=== PATIENT | male | born 1970 | race Hispanic/Latino ===

== ENCOUNTER 2018-09-20 06:20 | Observation (INO) | payer OTHER ==
[2018-09-20 07:00] LABS: BASO # 0.1 K/uL (0.0-0.2); BASO % 1.1 % (0.0-2.0); EOS # 0.2 K/uL (0.0-0.7); EOS % 1.9 % (0.0-4.0); HEMOGLOBIN 15.1 g/dL (12.0-18.0); LYMPH # 2.9 K/uL (1.0-4.3); LYMPH % 22.7 % (20.0-40.0); MEAN CELL VOLUME 83.9 fL (80.0-94.0); MEAN CORPUSCULAR HGB CONC 34.6 g/dL (33.0-37.0); MEAN PLATELET VOLUME 8.5 fL (7.2-11.7); MONO % 7.4 % (0.0-10.0); NEUT # 8.6 K/uL (1.8-7.0); NEUT % 66.9 % (50.0-75.0); NRBC % 0.1 % (0.0-2.0); RBC 5.21 Mil/uL (4.40-5.90); RED CELL DISTRIBUTION WIDTH 13.8 % (11.5-14.5); WHITE BLOOD COUNT 12.9 K/uL (4.8-10.8)
[2018-09-20 07:05] LABS: INR 1.1
--- NOTE | 2018-09-20 07:07 | C.PDOC ---
History Of Present Illness 48 yr old male w/ hx of HTN, DM2 p/w abdominal pain. Abdominal pain has been going on intermittently for weeks. Sharp stabbing pain, RUQ and LLQ, has a hx of gallstones, notes pain is similar, without radiation. No constipation, diarrhea, dark or bloody stool, nausea or vomiting. No Headache, trauma, dysuria, tenesmus or back pain. No rashes or new medications. Pt notes he was sent in by surgery for further consultation. No other complaints. Time Seen by Provider: 09/20/18 07:01 Chief Complaint (Nursing): Abdominal Pain History Per: Patient Past Medical History Vital Signs: Last Vital Signs Temp 98.1 F 09/20/18 06:32 Pulse 83 09/20/18 06:32 Resp 18 09/20/18 06:32 BP 180/115 H 09/20/18 06:32 Pulse Ox 96 09/20/18 06:32 - Medical History PMH: HTN Family History: States: No Known Family Hx - Social History Hx Alcohol Use: Yes Hx Substance Use: No - Immunization History Hx Tetanus Toxoid Vaccination: No Hx Influenza Vaccination: Yes Hx Pneumococcal Vaccination: No Review Of Systems Constitutional: Negative for: Fever Eyes: Negative for: Pain ENT: Negative for: Ear Pain Cardiovascular: Negative for: Chest Pain Respiratory: Negative for: Cough Gastrointestinal: Positive for: Abdominal Pain. Negative for: Nausea, Vomiting, Constipation Genitourinary: Negative for: Dysuria, Frequency Musculoskeletal: Negative for: Neck Pain, Shoulder Pain, Back Pain Skin: Negative for: Rash Neurological: Negative for: Weakness, Numbness, Change in Speech, Confusion, Headache Psych: Negative for: Anxiety Physical Exam - Physical Exam Appears: Well, Non-toxic, No Acute Distress Skin: Normal Color, Warm, Dry Head: Atraumatic, Normacephalic Eye(s): bilateral: Normal Inspection, PERRL, EOMI Ear(s): Bilateral: Normal Nose: Normal Oral Mucosa: Moist, Dry Tongue: Normal Appearing Lips: Normal Appearing Throat: Normal Neck: Normal, Normal ROM, Supple Chest: Symmetrical, No Deformity Cardiovascular: Rhythm Regular Respiratory: Normal Breath Sounds Gastrointestinal/Abdominal: Normal Exam, No Tenderness Back: Normal Inspection, No CVA Tenderness Extremity: Normal ROM Extremity: Bilateral: Atraumatic Pulses: Left Dorsalis Pedis: Normal, Right Dorsalis Pedis: Normal Neurological/Psych: Oriented x3, Normal Speech Gait: Steady ED Course And Treatment - Laboratory Results Result Diagrams: 09/20/18 06:54 09/20/18 06:54 O2 Sat by Pulse Oximetry: 96 Medical Decision Making Medical Decision Makin yr old male w/ hx of HTN, DM2 p/w RUQ abdominal pain. Sent in by surgery for eval for chronic RUQ pain. Likely to OR. [id number] seen by human resources vice president: to OR w/ Dr. Malloy. Pt in NAD with VSS. Abdomen stable. PT has been NPO for upcoming surgical procedure: choley. No fever, chills or night sweats. No N/V. No constipation or diarrhea. Appreciate consult w/ Dr. Malloy: to admit to his service. admission order placed. EK, NSR, No stemi Disposition - Disposition Disposition Time: 07:31 Condition: GOOD - Clinical Impression Clinical Impression: Abdominal pain
[2018-09-20 07:21] LABS: ALB/GLOB RATIO 1.2 (1.0-2.1); ALBUMIN 4.4 g/dL (3.5-5.0); ALT/SGPT 64 U/L (21-72); AST/SGOT 39 U/L (17-59); BLOOD UREA NITROGEN 12 mg/dL (9-20); CALCIUM 9.2 mg/dl (8.6-10.4); GFR NON-AFRICAN AMERICAN > 60; LIPASE 123 U/L (23-300)
[2018-09-20] MEDS ORDERED: ceFAZolin IV 1 gm in Dextrose 0 GM/0 ML BAG IVPB ONE (07:28)
[2018-09-20] MEDS ORDERED: Iohexol 240 (50 ml) ONE ×2 (07:29→09:25)
--- NOTE | 2018-09-20 08:05 | CP.PCM.HP ---
History of Present Illness - History of Present Illness History of Present Illness: Pt is a 48M with PMHx significant for HTN, GERD & DM who presents to for abdominal pain. Pt has symptomatic cholelithiasis and states he has abdominal pain major after fatty meals. Denies other complaints at this time. Denies nausea/vomiting, fevers/chills, chest pain or SOB. PMHx: as listed PSHx: denies SocialHx: former smoker, denies EtOH/drugs NKDA Present on Admission - Present on Admission Any Indicators Present on Admission: No Review of Systems - Review of Systems All systems: reviewed and no additional remarkable complaints except (as per HPI) Past Patient History - Infectious Disease Hx of Infectious Diseases: None - Past Social History Smoking Status: Former Smoker - CARDIAC Hx Hypertension: Yes - ENDOCRINE/METABOLIC Hx Diabetes Mellitus Type 2: Yes - GASTROINTESTINAL Hx Gastroesophageal Reflux: Yes - PSYCHIATRIC Hx Substance Use: No - SURGICAL HISTORY Hx Surgeries: No - ANESTHESIA Hx Anesthesia: No Meds Allergies/Adverse Reactions: Allergies Allergy/AdvReac Type Severity Reaction Status Date / Time No Known Allergies Allergy Unverified 09/20/18 06:29 Physical Exam - Constitutional Appears: Well, No Acute Distress - Head Exam Head Exam: ATRAUMATIC, NORMOCEPHALIC - ENT Exam ENT Exam: Mucous Membranes Moist - Respiratory Exam Respiratory Exam: NORMAL BREATHING PATTERN - Cardiovascular Exam Cardiovascular Exam: RRR - GI/Abdominal Exam GI & Abdominal Exam: Soft. absent: Distended, Tenderness - Neurological Exam Neurological exam: Alert, Oriented x3 - Skin Skin Exam: Dry, Intact, Warm Results - Vital Signs Recent Vital Signs: Last Vital Signs Temp 98.1 F 09/20/18 06:32 Pulse 83 09/20/18 06:32 Resp 18 09/20/18 06:32 BP 137/86 09/20/18 07:35 Pulse Ox 96 09/20/18 08:02 - Labs Result Diagrams: 09/20/18 06:54 09/20/18 06:54 Labs: Laboratory Results - last 24 hr 09/20/18 09/20/18 09/20/18 06:31 06:54 06:54 WBC 12.9 H RBC 5.21 Hgb 15.1 Hct 43.7 MCV 83.9 MCH 29.0 MCHC 34.6 RDW 13.8 Plt Count 213 MPV 8.5 Neut % (Auto) 66.9 Lymph % (Auto) 22.7 [place] % (Auto) 7.4 Eos % (Auto) 1.9 Baso % (Auto) 1.1 Neut # (Auto) 8.6 H Lymph # (Auto) 2.9 [place] # (Auto) 1.0 H Eos # (Auto) 0.2 Baso # (Auto) 0.1 PT 12.0 INR 1.1 APTT 34 Sodium Potassium Chloride Carbon Dioxide Anion Gap BUN Creatinine Est GFR ( Amer) Est GFR (Non-Af Amer) POC Glucose (mg/dL) 162 H Random Glucose Calcium Total Bilirubin AST ALT Alkaline Phosphatase Total Protein Albumin Globulin Albumin/Globulin Ratio Lipase Blood Type 09/20/18 09/20/18 06:54 07:18 WBC RBC Hgb Hct MCV MCH MCHC RDW Plt Count MPV Neut % (Auto) Lymph % (Auto) [place] % (Auto) Eos % (Auto) Baso % (Auto) Neut # (Auto) Lymph # (Auto) [place] # (Auto) Eos # (Auto) Baso # (Auto) PT INR APTT Sodium 138 Potassium 4.5 Chloride 103 Carbon Dioxide 24 Anion Gap 15 BUN 12 Creatinine 0.7 L Est GFR ( Amer) > 60 Est GFR (Non-Af Amer) > 60 POC Glucose (mg/dL) Random Glucose 178 H Calcium 9.2 Total Bilirubin 1.1 AST 39 ALT 64 Alkaline Phosphatase 84 Total Protein 7.9 Albumin 4.4 Globulin 3.6 Albumin/Globulin Ratio 1.2 Lipase 123 Blood Type B POSITIVE Assessment & Plan - Assessment and Plan (Free Text) Assessment: 48M with symptomatic cholelithiasis Plan: - OR for lap javon - keep NPO - d/w Dr. Manuel Lamar
[2018-09-20] MEDS: Sodium Chloride 0.9% 1,000 ML IV SCH ×3 (08:48→23:58)
[2018-09-20] MEDS ORDERED: ceFAZolin IV 1 gm in Dextrose 2 GM/100 ML BAG IVPB ONE (09:24)
[2018-09-20] MEDS ORDERED: Lidocaine Hydrochloride 0 ML INJ ONE (09:25)
[2018-09-20] MEDS ORDERED: Midazolam 2 MG/2 ML VIAL ONE (10:08)
[2018-09-20] MEDS ORDERED: Propofol 10 mg/ml Inj (20 ML) ONE (10:08)
[2018-09-20] MEDS ORDERED: Oxycodone/Acetaminophen 5/325 mg Tab PO PRN (12:30)
--- NOTE | 2018-09-20 12:37 | PCM.SURG1 ---
Surgeon's Initial Post Op Note - Surgeon's Notes Surgeon: Dr. Jackson Broaching Machine Repairer: Dr. Vu PGY3 Type of Anesthesia: General Endo Pre-Operative Diagnosis: Acute Cholecystitis Operative Findings: See operative dictation Post-Operative Diagnosis: Acute Cholecystitis Operation Performed: Laparoscopic Cholecystectomy With Intraoperative Cholangiogram Specimen/Specimens Removed: Gallbladder Estimated Blood Loss: EBL {In ML}: 15 Blood Products Given: N/A Drains Used: No Drains Post-Op Condition: Good Date of Surgery/Procedure: 09/20/18 Time of Surgery/Procedure: 12:36
[2018-09-20] MEDS: HYDROmorphone 0.5 mg/0.5 ml ISec IVP PRN ×3 (12:40→13:45)
[2018-09-20] MEDS ORDERED: Glucagon Recombinant 1 mg Inj IM PRN (13:20)
[2018-09-20] MEDS ORDERED: Dextrose 50% SYRINGE Inj (50 ml) IV PRN (13:20)
--- NOTE | 2018-09-20 13:53 | RAD ---
Date of service: 09/20/2018 PROCEDURE: Intraoperative Fluoroscopy. HISTORY: CHOLECYSTITIS FINDINGS: Fluoroscopic assistance was provided. Fluoroscopy time = 20.5 sec. Radiation dose = 9.97 mGy. Please refer to the operative report from ZACHERY Wang.
[2018-09-20] MEDS ORDERED: Sodium Chloride 0.9% 1,000 ML IV ONE (14:00)
[2018-09-20] MEDS: Ciprofloxacin 400mg/200ml D5W 400 MG/200 ML BAG IVPB SCH (16:10)
[2018-09-20] MEDS ORDERED: (Novolin R) Insulin Human Regular 100 units/ml vial SC SCH (18:00)
[2018-09-20] MEDS: (Novolin R) Insulin Human Regular 100 units/ml vial SC SCH (21:55)
[2018-09-20 22:53] VITALS: RESP 20
[2018-09-20 23:50] VITALS: O2SAT 95
--- NOTE | 2018-09-20 23:59 | OP ---
PROCEDURE DATE: 09/20/2018 PREOPERATIVE DIAGNOSIS: Acute cholecystitis. POSTOPERATIVE DIAGNOSIS: Acute cholecystitis. PROCEDURE CARRIED OUT: Laparoscopic cholecystectomy with C-arm cholangiogram. SURGEON: Beni Jackson Jr., MD OCCUPATIONAL THERAPY AIDES TEACHER: Eric Vu DO ANESTHESIOLOGIST: Tayla Winchester CRNA INDICATIONS FOR PROCEDURE: The patient is a 48-year-old man with known history of gallstones, pain today, advised to come to the emergency room. OPERATIVE FINDINGS: 1. Cholangiogram carried out through the cystic duct showed free flow into the duodenum. Visualization of the hepatic radicles, no evidence of any stones or strictures. 2. The gallbladder was acutely inflamed. There were adhesions to it. No other abnormality detected on examination of the liver or the other vessels. DESCRIPTION OF PROCEDURE: The patient was given general anesthesia and intravenous antibiotics. Venodyne boots were applied. A Rich trocar was inserted by cut-down technique in the umbilicus. Two additional 5 mm trocars were placed. The cystic duct, cystic artery, and a view of safety obtained. After obtaining this, we clipped the cystic duct and carried out cholangiogram as mentioned above. We then clipped the cystic duct and cystic artery. After this had been done, we removed the gallbladder from the liver bed and there was minimal bleeding. We then removed the gallbladder intact to the bag. We then closed the wound. We had closed the umbilicus. The others were closed. The skin incisions were closed. Blood loss was definitely less than 25 mL. Operation carried out, laparoscopic cholecystectomy with the cholangiogram. Beni Jackson Jr., MD cc:
[2018-09-21] MEDS: Ciprofloxacin 400mg/200ml D5W 400 MG/200 ML BAG IVPB SCH (01:44)
[2018-09-21] MEDS: (Novolin R) Insulin Human Regular 100 units/ml vial SC SCH ×2 (07:51→13:27)
[2018-09-21 08:15] LABS: BASO # 0.1 K/uL (0.0-0.2); BASO % 0.6 % (0.0-2.0); EOS # 0.1 K/uL (0.0-0.7); EOS % 0.5 % (0.0-4.0); HEMOGLOBIN 13.8 g/dL (12.0-18.0); LYMPH # 2.3 K/uL (1.0-4.3); LYMPH % 18.3 % (20.0-40.0); MEAN CELL VOLUME 83.6 fL (80.0-94.0); MEAN CORPUSCULAR HEMOGLOBIN 28.4 pg (27.0-31.0); MEAN PLATELET VOLUME 8.5 fL (7.2-11.7); MONO # 1.2 K/uL (0.0-0.8); MONO % 9.4 % (0.0-10.0); NEUT # 9.1 K/uL (1.8-7.0); NEUT % 71.2 % (50.0-75.0); NRBC % 0.1 % (0.0-2.0); RBC 4.87 Mil/uL (4.40-5.90); RED CELL DISTRIBUTION WIDTH 14.1 % (11.5-14.5); WHITE BLOOD COUNT 12.8 K/uL (4.8-10.8)
[2018-09-21 08:16] VITALS: BP 130/87; PULSE 83; TEMP 97.8
[2018-09-21 08:27] LABS: ALB/GLOB RATIO 1.2 (1.0-2.1); ALBUMIN 3.8 g/dL (3.5-5.0); ALT/SGPT 68 U/L (21-72); AST/SGOT 53 U/L (17-59); BLOOD UREA NITROGEN 11 mg/dL (9-20); CALCIUM 8.5 mg/dl (8.6-10.4); GFR NON-AFRICAN AMERICAN > 60
[2018-09-21] MEDS ORDERED: RAMIPRIL 10 MG PO SCH (10:00)
[2018-09-21] MEDS ORDERED: Pneumococcal 23-Valent Vaccine IM ONE (10:00)
[2018-09-21] MEDS ORDERED: Pantoprazole 40 mg EC Tab PO SCH (10:00)
[2018-09-21] MEDS: Sodium Chloride 0.9% 1,000 ML IV SCH (13:28)
--- NOTE | 2018-09-21 23:57 | CARD ---
APPROVED REPORT Date of service: 09/20/2018 EKG Measurement Heart [id number] ID [id number] <Conclusion> Normal sinus rhythm Left axis deviation Incomplete right bundle branch block Septal infarct, age undetermined Abnormal ECG
== END 2018-09-21 14:16 | disposition home or self-care (01) ==
LOC: SUPCPDRO 06:20 → C.ER 06:20 → C.3T 06:20 → C.SDS 07:31 → C.9E 12:53 → C.9P 13:29 → C.3T 17:00
PROVIDERS: ADMIT Surgery Vascular Surgery; ATTEND Surgery Vascular Surgery
DX: K80.00 Calculus of gallbladder with acute cholecystitis without obstruction (principal); I10 Essential (primary) hypertension; E11.9 Type 2 diabetes mellitus without complications; K21.9 Gastro-esophageal reflux disease without esophagitis; Z87.891 Personal history of nicotine dependence; E78.5 Hyperlipidemia, unspecified; G47.33 Obstructive sleep apnea (adult) (pediatric)
CPT/HCPCS: 36415; 47563; 76000; 80053; 82948; 83690; 85025; 85610; 85730; 86850; 86900; 88304; 90471; 90732; 93005; 94660; 99285; G0378; J0690; J0744; J1170; J2250; J2704; J3010; J7030; J7040; Q9966